=== PATIENT | female | born 1965 | race Caucasian/White ===

== ENCOUNTER 2025-03-23 07:08 | Outpatient (CLI) | payer BC ==
[2025-03-23 10:09] LABS: Estimated GFR - POC 52.0
[2025-03-23] MEDS ORDERED: Iopamidol 300 61% 100 ML VIAL FS ONE (11:32)
== END 2025-03-23 07:09 | disposition home or self-care (01) ==
LOC: CSHCT 07:08
PROVIDERS: ATTEND Internal Medicine Hematology & Oncology
DX: C22.1 Intrahepatic bile duct carcinoma (principal); K76.9 Liver disease, unspecified; K83.8 Other specified diseases of biliary tract; Z96.89 Presence of other specified functional implants; I85.00 Esophageal varices without bleeding; M79.89 Other specified soft tissue disorders
CPT/HCPCS: 71260; 74177; 82565; Q9967

== ENCOUNTER 2025-05-07 08:05 | Outpatient (CLI) | payer BC, MEDICARE ==
[2025-05-07] MEDS ORDERED: Iopamidol 300 61% 100 ML VIAL FS ONE (13:45)
== END 2025-05-07 08:06 | disposition home or self-care (01) ==
LOC: CSHCT 08:05
PROVIDERS: ATTEND Internal Medicine Hematology & Oncology
DX: C22.1 Intrahepatic bile duct carcinoma (principal); K83.8 Other specified diseases of biliary tract; K76.9 Liver disease, unspecified
CPT/HCPCS: 71260; 74177